=== PATIENT | male | born 1945 | race Caucasian/White ===

== ENCOUNTER 2020-03-17 06:55 | Day surgery (SDC) | payer MEDICARE ==
[2020-03-16 13:09] VITALS: BMI 33.3
[~2020-03-17 06:55] MED LIST: LACTATED RINGERS 1,000 ML IV SCH; LIDOCAINE 1% (10MG/ML) FOR IV START INTRADERMA PRN
[2020-03-17 07:18] VITALS: TEMP 97
[2020-03-17 07:24] LABS: Glucose,Whole Blood 167 mg/dL (75-99)
[2020-03-17] MEDS ORDERED: PROPOFOL 10 MG/ML 20 ML VIAL IV ONE (07:55)
--- NOTE | 2020-03-17 07:57 | P.GSHP ---
History of Present Illness H&P Date: 03/17/20 Chief Complaint: Epigastric pain This a 74-year-old male infant today for EGD. He's had complete epigastric pain. Past Medical History Past Medical History: CVA/TIA, Diabetes Mellitus, Hyperlipidemia, Hypertension, Prostate Disorder, Thyroid Disorder Additional Past Medical History / Comment(s): KIDNEY STONES. CVA X 2. RECENT N/V UNKNOWN ORIGIN History of Any Multi-Drug Resistant Organisms: None Reported Past Surgical History: Appendectomy, Hernia Repair, Joint Replacement, Orthopedic Surgery, Tonsillectomy Additional Past Surgical History / Comment(s): LT CAROTID SX. KIDNEY STONE SX. RT KNEE SX. RT ROTATOR CUFF. RT TKA Past Anesthesia/Blood Transfusion Reactions: Motion Sickness Smoking Status: Former smoker - Past Family History Mother Family Medical History: No Reported History Medications and Allergies Home Medications Medication Instructions Recorded Confirmed Type Celecoxib [CeleBREX] 200 mg PO DAILY 03/16/20 03/16/20 History Clopidogrel [Plavix] 75 mg PO DAILY 03/16/20 03/16/20 History Dulaglutide [Trulicity] 1.5 mg SQ DICKSON 03/16/20 03/16/20 History Ergocalciferol [Vitamin D2] 50,000 unit PO MO 03/16/20 03/16/20 History Ezetimibe [Zetia] 10 mg PO HS 03/16/20 03/16/20 History Fenofibrate Nanocrystallized 145 mg PO HS 03/16/20 03/16/20 History [Fenofibrate] Insulin Degludec [Tresiba 44 units SQ HS 03/16/20 03/16/20 History Flextouch U-200] Levothyroxine Sodium [Synthroid] 75 mcg PO DAILY 03/16/20 03/16/20 History Lisinopril [Zestril] 20 mg PO HS 03/16/20 03/16/20 History QUEtiapine FUMARATE [SEROquel] 600 mg PO HS 03/16/20 03/16/20 History metFORMIN HCL [Glucophage] 500 mg PO BID 03/16/20 03/16/20 History Allergies Allergy/AdvReac Type Severity Reaction Status Date / Time Penicillins Allergy Rash/Hives Verified 03/17/20 07:10 Surgical - Exam Vital Signs Temp Pulse Resp BP Pulse Ox 97.0 F L 79 16 156/77 94 L 03/17/20 07:16 03/17/20 07:16 03/17/20 07:16 03/17/20 07:16 03/17/20 07:16 - General well developed, well nourished, no distress - Eyes PERRL - ENT normal pinna - Neck no masses - Respiratory normal expansion - Cardiovascular Rhythm: regular - Abdomen Abdomen: soft, non tender Results - Labs Abnormal Lab Results - Last 24 Hours (Table) 03/17/20 Range/Units 07:23 POC Glucose (mg/dL) 167 H (75-99) mg/dL Assessment and Plan Assessment: Epigastric pain. We'll perform EGD tonight for possible gastritis.
--- NOTE | 2020-03-17 08:04 | P.OP ---
Date of Procedure: 03/17/20 Preoperative Diagnosis: Epigastric pain Postoperative Diagnosis: Poor gastric emptying antral gastritis Procedure(s) Performed: EGD Anesthesia: MAC Surgeon: Jaylen Maxwell Pathology: other (Antrum) Condition: stable Disposition: PACU Description of Procedure: The patient's placed on the endoscopy table in the lateral position. He received IV sedation. The gastroscope placed oropharynx and passed in the esophagus into the stomach. Scope then placed through the pylorus. The patient had retained food in the antrum and pylorus. The visualization of the duodenum was suboptimal. Scope was withdrawn there is some mild antral gastritis. A biopsies performed. The scope was unretroflexed and remainder stomach appeared normal. The GE junction was at 40 cm. The distal esophagus appeared normal. There is no significant hiatal hernia. The proximal esophagus appeared normal. Scope was withdrawn for patient.
[2020-03-17 08:35] VITALS: RESP 18
[2020-03-17 09:37] VITALS: BP 149/82; PULSE 78
== END 2020-03-17 09:01 | disposition home or self-care (01) ==
LOC: ORWHC2ENDO 06:55
PROVIDERS: ATTEND Surgery
DX: K29.50 Unspecified chronic gastritis without bleeding (principal); E11.9 Type 2 diabetes mellitus without complications; E78.5 Hyperlipidemia, unspecified; I10 Essential (primary) hypertension; Z86.73 Personal history of transient ischemic attack (TIA), and cerebral infarction without residual deficits; Z87.442 Personal history of urinary calculi; Z96.651 Presence of right artificial knee joint; Z98.890 Other specified postprocedural states; Z87.891 Personal history of nicotine dependence; Z79.84 Long term (current) use of oral hypoglycemic drugs; Z79.02 Long term (current) use of antithrombotics/antiplatelets; Z79.890 Hormone replacement therapy; Z79.899 Other long term (current) drug therapy; Z88.0 Allergy status to penicillin
CPT/HCPCS: 88305; 43239; J2704

== ENCOUNTER → 2020-03-18 | Outpatient (CLI) | payer MEDICARE ==
--- NOTE | 2020-03-18 11:31 | NM ---
EXAMINATION TYPE: NM hepatobiliary w CCK DATE OF EXAM: 03/18/2020 COMPARISON: NONE HISTORY: Abdominal pain TECHNIQUE: After the intravenous administration of 5.17 mCi Tc 99m Mebrofenin hepatobiliary scintigra phy is performed. Immediate images post injection. FINDINGS: There is satisfactory initial accumulation of tracer by the liver. The gallbladder is visualized wit hin 15 minutes. The small bowel activity is noted within 15 minutes. At one hour CCK was administer ed, patient was injected with 2.4 mcg of Kinevac, and gallbladder ejection fraction is calculated at 61 %, in the normal range. Therefore there is no scintigraphic evidence of cystic or common bile jody t obstruction to suggest acute cholecystitis or gallbladder dyskinesia. IMPRESSION: Exam is within normal limits.
== END | disposition home or self-care (01) ==
LOC: RADNMMAIN 06:54
PROVIDERS: ATTEND Surgery
DX: R10.9 Unspecified abdominal pain (principal)
CPT/HCPCS: 78227; A9537; J2805

== ENCOUNTER 2024-01-30 06:49 | Day surgery (SDC) | payer MEDICARE ==
[2024-01-29 09:51] VITALS: BMI 32.1
[2024-01-30] MEDS: LACTATED RINGERS 1,000 ML IV SCH (07:24)
[2024-01-30 07:35] LABS: Glucose,Whole Blood 172 mg/dL (70-110)
[2024-01-30] MEDS ORDERED: LIDOCAINE 1% INJ 10MG/ML (20 ML MDV) ONE (07:35)
[2024-01-30] MEDS ORDERED: PROPOFOL 10 MG/ML 20 ML VIAL IV ONE (07:35)
[2024-01-30] MEDS ORDERED: GLYCOPYRROLATE 0.2 MG/ML 2 ML VIAL ONE (07:35)
--- NOTE | 2024-01-30 07:43 | P.GSHP ---
History of Present Illness H&P Date: 01/30/24 Chief Complaint: anemia, GI bleed this is a 78-year-old male who's had issues anemia and possible GI bleed. Patient presents today for EGD and colonoscopy. Past Medical History Past Medical History: CVA/TIA, Diabetes Mellitus, Hyperlipidemia, Hypertension, Prostate Disorder, Thyroid Disorder Additional Past Medical History / Comment(s): KIDNEY STONES. CVA X 2 History of Any Multi-Drug Resistant Organisms: None Reported Past Surgical History: Appendectomy, Hernia Repair, Joint Replacement, Orthopedic Surgery, Tonsillectomy Additional Past Surgical History / Comment(s): LT CAROTID SX. KIDNEY STONE SX. RT KNEE SX. RT ROTATOR CUFF. RT TKA Past Anesthesia/Blood Transfusion Reactions: Motion Sickness Smoking Status: Former smoker - Past Family History Mother Family Medical History: No Reported History Medications and Allergies Home Medications Medication Instructions Recorded Confirmed Type Clopidogrel [Plavix] 75 mg PO DAILY 03/16/20 01/30/24 History Ergocalciferol [Vitamin D2] 50,000 unit PO MO 03/16/20 01/30/24 History metFORMIN HCL [Glucophage] 500 mg PO BID 03/16/20 01/30/24 History Clindamycin [Cleocin] 150 mg PO Q6H PRN 01/29/24 01/30/24 History Finasteride [Proscar] 5 mg PO DAILY 01/29/24 01/30/24 History QUEtiapine [SEROquel] 400 mg PO BID 01/29/24 01/30/24 History Semaglutide [Rybelsus] 3 mg PO DAILY 01/29/24 01/30/24 History Allergies Allergy/AdvReac Type Severity Reaction Status Date / Time Penicillins Allergy Rash/Hives Verified 01/30/24 07:13 Surgical - Exam Vital Signs Temp Pulse Resp BP Pulse Ox 97.3 F L 53 L 18 148/65 93 L 01/30/24 07:24 01/30/24 07:24 01/30/24 07:24 01/30/24 07:24 01/30/24 07:24 - General well developed, well nourished, no distress - Eyes PERRL - ENT normal pinna - Neck no masses - Respiratory normal expansion - Cardiovascular Rhythm: regular - Abdomen Abdomen: soft, non tender Results - Labs Abnormal Lab Results - Last 24 Hours (Table) 01/30/24 Range/Units 07:28 POC Glucose (mg/dL) 172 H (70-110) mg/dL Assessment and Plan Assessment: anemia, GI bleed. We'll perform colonoscopy EGD.
[2024-01-30 07:50] VITALS: RESP 18; TEMP 97.3
--- NOTE | 2024-01-30 08:01 | P.OP ---
Date of Procedure: 01/30/24 Preoperative Diagnosis: anemia GI bleed Postoperative Diagnosis: antral gastritis Diverticulosis Procedure(s) Performed: EGD Colonoscopy Anesthesia: MAC Surgeon: Jaylen Maxwell Pathology: other (antrum) Condition: stable Disposition: PACU Description of Procedure: the patient's placed on the endoscopy table in the lateral position. He received IV sedation. The gastroscope placed oropharynx passed in the esophagus and stomach. Scope was placed through the pylorus. The first and second portion of the duodenum appeared normal. Scope was then brought back the antrum this appeared mildly inflamed. A biopsy was performed. The scope was unretroflexed and remainder of the stomach appeared normal. There was a small hiatal hernia. The GE junction was at 39 cm. The distal esophagus appeared normal. Proximal esophagus appeared normal. Scope was withdrawn from the patient. Next, digital rectal exam was performed. This revealed no abnormalities. The flexible colonoscope was then placed patient anus passed throughout the entire colon. The cecum was visualized. There was a large amount liquid stool which limited the view of the cecal mucosa. The distal right colon appeared normal. The transverse colon appeared normal. In the descending sigmoid colon there was mild diverticular changes. The scope was then brought back the rectum and this appeared normal. Scope withdrawn for patient.
[2024-01-30 08:32] LABS: Glucose,Whole Blood 186 mg/dL (70-110)
[2024-01-30 08:37] VITALS: BP 154/92; PULSE 75
== END 2024-01-30 08:54 | disposition home or self-care (01) ==
LOC: ORWHC2ENDO 06:49
PROVIDERS: ATTEND Surgery
DX: K29.50 Unspecified chronic gastritis without bleeding (principal); D64.9 Anemia, unspecified; K57.30 Diverticulosis of large intestine without perforation or abscess without bleeding; K44.9 Diaphragmatic hernia without obstruction or gangrene; E11.9 Type 2 diabetes mellitus without complications; I73.9 Peripheral vascular disease, unspecified; I10 Essential (primary) hypertension; E78.5 Hyperlipidemia, unspecified; E07.9 Disorder of thyroid, unspecified; Z90.89 Acquired absence of other organs; Z90.49 Acquired absence of other specified parts of digestive tract; Z87.891 Personal history of nicotine dependence; Z79.02 Long term (current) use of antithrombotics/antiplatelets; Z79.84 Long term (current) use of oral hypoglycemic drugs; Z79.899 Other long term (current) drug therapy; Z98.890 Other specified postprocedural states; Z88.0 Allergy status to penicillin; Z86.73 Personal history of transient ischemic attack (TIA), and cerebral infarction without residual deficits; Z79.01 Long term (current) use of anticoagulants; Z96.651 Presence of right artificial knee joint
CPT/HCPCS: 88305; 45378; 43239; J2001; J2704

== ENCOUNTER → 2024-02-12 | Outpatient (CLI) | payer MEDICARE ==
[2024-02-12 19:11] LABS: Basophils # (A) 0.06 X 10*3/uL (0.00-0.10); Eosinophils # (A) 0.18 X 10*3/uL (0.04-0.35); HCT 37.8 % (39.6-50.0); HGB 12.6 g/dL (13.0-17.0); Lymphocytes # (A) 1.71 X 10*3/uL (0.90-5.00); Lymphocytes % (A) 28.4 %; MCH 29.3 pg (27.0-32.0); MCHC 33.3 g/dL (32.0-37.0); MCV 87.9 FL (80.0-97.0); Monocytes # (A) 0.69 X 10*3/uL (0.20-1.00); Monocytes % (A) 11.4 %; NRBC Per 100 WBC 0 X 10*3/uL (0.00-0.01); Neutrophils # (A) 3.37 X 10*3/uL (1.80-7.70); Neutrophils % (A) 55.9 %; Platelet Count 226 X 10*3/uL (140-440); RDW 14.3 % (11.5-14.5); WBC 6.03 X 10*3/uL (4.50-10.00)
== END | disposition home or self-care (01) ==
LOC: LABWHC1 14:14
PROVIDERS: ATTEND Surgery
DX: Z01.818 Encounter for other preprocedural examination (principal); I49.3 Ventricular premature depolarization; K43.2 Incisional hernia without obstruction or gangrene; K42.9 Umbilical hernia without obstruction or gangrene
CPT/HCPCS: 36415; 85025; 86850; 86900; 86901; 93005

== ENCOUNTER 2024-02-19 05:43 | Observation (INO) | payer MEDICARE ==
[~2024-02-19 05:43] MED LIST changes: -LACTATED RINGERS 1,000 ML IV SCH
[2024-02-19 06:59] LABS: Glucose,Whole Blood 194 mg/dL (70-110)
[2024-02-19] MEDS: LACTATED RINGERS 1,000 ML IV SCH ×2 (07:00→15:11)
[2024-02-19] MEDS: ACETAMINOPHEN TAB 500 MG TAB PO PRN (07:00)
[2024-02-19] MEDS: MIDAZOLAM 2 MG/2 ML VIAL IVP ONE (07:11)
[2024-02-19] MEDS: DEXAMETHASONE SOD PHOSPHATE 4 MG/ML 1 ML VIAL IV ONE (07:25)
[2024-02-19] MEDS: ONDANSETRON 4 MG/2 ML VIAL IVP ONE (07:25)
[2024-02-19] MEDS: HEPARIN SODIUM,PORCINE 5,000 UNIT/ML 1 ML VIAL SQ PRN (07:30)
[2024-02-19] MEDS ORDERED: DEXAMETHASONE SOD PHOSPHATE 4 MG/ML 1 ML VIAL ONE (07:35)
[2024-02-19] MEDS ORDERED: ROCURONIUM 10 MG/ML (5 ML VIAL) IV ONE (07:35)
[2024-02-19] MEDS ORDERED: KETOROLAC 30 MG/ML 1 ML VIAL ONE (07:35)
[2024-02-19] MEDS ORDERED: KETAMINE HCL IN 0.9 % NACL 50 MG/5 ML SYRINGE ONE (07:35)
[2024-02-19] MEDS ORDERED: LIDOCAINE 1% INJ 10MG/ML (20 ML MDV) ONE (07:35)
[2024-02-19] MEDS ORDERED: GLYCOPYRROLATE 0.2 MG/ML 2 ML VIAL ONE (07:35)
[2024-02-19] MEDS ORDERED: NEOSTIGMINE 1 MG/ML 10 ML VIAL ONE (07:35)
[2024-02-19] MEDS ORDERED: PROPOFOL 10 MG/ML 20 ML VIAL IV ONE (07:35)
[2024-02-19] MEDS ORDERED: HYDROmorphone (PF) 1 MG/ML ONE (07:35)
[2024-02-19] MEDS ORDERED: ROPIVACAINE 5 MG/ML 30 ML VIAL ONE (07:35)
[2024-02-19] MEDS ORDERED: SUCCINYLCHOLINE CHLORIDE 200 MG/10 ML VIAL IV ONE (07:35)
[2024-02-19] MEDS ORDERED: MIDAZOLAM 2 MG/2 ML VIAL ONE (07:35)
[2024-02-19] MEDS ORDERED: fentaNYL (PF) 50 MCG/ML 2 ML AMP ONE (07:35)
--- NOTE | 2024-02-19 07:35 | P.ANPRN ---
Procedure Note - Anesthesia - Nerve Block Performed Bilateral Transversus Abdominis Single Time Out Performed: Yes Date of Procedure: 02/19/24 Procedure Start Time: :10 Procedure Stop Time: :18 Location of Patient: PreOp Indication: Acute Post-Operative Pain, Analgesia, Requested by Surgeon Sedation Type: Sedate with meaningful contact maintained Preparation: Sterile Prep Position: Supine Needle Types: Pajunk Needle Gauge: 21 Ultrasound used to visualize needle placement: Yes Ultrasound used to observe medication spread: Yes Injectate: 0.5% Ropivacaine (see comment for volume) (Ropiv 15 ml +decadron 4mg--- Each side) Blood Aspirated: No Pain Paresthesia on Injection Noted: No Resistance on Injection: Normal Image Stored and Saved: Yes Events: Uneventful and Well Tolerated
[2024-02-19] MEDS: LIDOCAINE 1%-EPI 1:100,000 20 ML VIAL SQ ONE (08:04)
--- NOTE | 2024-02-19 09:05 | P.OP ---
Date of Procedure: 02/19/24 Preoperative Diagnosis: incisional hernia Umbilical hernia Postoperative Diagnosis: incisional hernia Umbilical hernia Procedure(s) Performed: llaparoscopic robotic-assisted repair of ventral hernia Laparoscopic robotic-assisted repair of umbilical hernia Partial omentectomy Ttransversus abdominis plane block Anesthesia: LUCAS Surgeon: Jaylen Maxwell Estimated Blood Loss (ml): 5 Pathology: other (omentum) Condition: stable Disposition: PACU Description of Procedure: The patient was placed on the operating table in the supine position. He received general anesthesia. His abdomen was prepped and draped usual fashion. Using a 5 mm optical trocar under direct visualization the peritoneal cavity was entered in the left upper quadrant. The abdomen was then insufflated. The laparoscope was placed back into the perineal cavity. Next a 8 mm robotic trocar was placed in the left lower quadrant and a 12 mm robotic trocar was placed in the left lateral position. The original 5 mm trocar was exchanged for a 8 mm robotic trocar. A four-quadrant transversus abdominis plane block performed using 1% local Xylocaine. The patient's placed in the left side up position. And the patient was undocked the robot. The umbilical hernia was visualized. Using hook cautery the peritoneum over the umbilical hernia was excised. the omentum was dissected free and sent to pathology. The fascial opening was repaired using 0V LOC suture. Next the incisional hernia was dissected. The incisional hernia was in the midline. UsingOV lock suture. The hernia was repaired. Next a piece of 11 cm round ventral light ST mesh was placed into the. Cavity and secured with 2 OV lock suture. The patient was undocked the robot. The needles were retrieved. The fascia of the 12 mm trocar site was closed with 0 Ethibond suture. Skin was closed interrupted 3-0 Monocryl suture. Dermabond dressings was applied. Patient top procedure well and was sent to recovery room stable condition.
[2024-02-19] MEDS: HYDROmorphone 0.5 MG/0.5 ML SYRINGE IVP PRN (09:16)
[2024-02-19] MEDS: droPERidol 5 MG/2 ML VIAL IVP ONE (09:31)
[2024-02-19] MEDS: fentaNYL (PF) 50 MCG/ML 2 ML AMP IVP ONE (10:34)
[2024-02-19] MEDS: LACTATED RINGERS 1,000 ML IV ONE (11:30)
[2024-02-19] MEDS ORDERED: NALOXONE 0.4 MG/ML 1 ML VIAL IV PRN (11:54)
[2024-02-19] MEDS: HYDROcodone/APAP 5-325MG 1 EACH TAB PO PRN (13:15)
[2024-02-19] MEDS: INSULIN ASPART (NovoLOG) 100 UNIT/ML VIAL SQ ONE (13:41)
[2024-02-19] MEDS: HYDROmorphone 1 MG/ML 1 ML SYRINGE IVP PRN (15:08)
[2024-02-19 16:47] LABS: Glucose,Whole Blood 242 mg/dL (70-110)
[2024-02-19] MEDS ORDERED: DEXTROSE 50% SYRINGE 50 ML IVP PRN ×2 (17:18)
[2024-02-19] MEDS: KETOROLAC 15 MG/ML 1 ML VIAL IVP SCH (18:02)
[2024-02-19] MEDS: INSULIN ASPART (NovoLOG) 100 UNIT/ML VIAL SQ SCH (18:03)
[2024-02-19 20:58] LABS: Glucose,Whole Blood 210 mg/dL (70-110)
[2024-02-19] MEDS: QUEtiapine 400 MG TAB PO SCH (21:52)
[2024-02-19] MEDS: ONDANSETRON 4 MG/2 ML VIAL IVP PRN (23:32)
[2024-02-20 05:52] LABS: Glucose,Whole Blood 189 mg/dL (70-110)
[2024-02-20] MEDS: CLOPIDOGREL 75 MG TAB PO SCH (08:33)
[2024-02-20] MEDS: ENOXAPARIN 40 MG/0.4 ML SYRINGE SQ SCH (08:33)
[2024-02-20] MEDS: FINASTERIDE 5 MG TAB PO SCH (08:34)
[2024-02-20] MEDS: lisinopriL 10 MG TAB PO SCH (08:34)
[2024-02-20 11:56] LABS: Glucose,Whole Blood 199 mg/dL (70-110)
--- NOTE | 2024-02-20 12:53 | P.DS ---
Providers Date of admission: 02/19/24 05:44 Expected date of discharge: 02/20/24 Attending physician: Jaylen Maxwell Consults: 02/19/24 11:54 Consult Physician Routine Consulting Provider: Emanuel Talavera Consult Reason/Comments: medical management Do you want consulting provider notified?: Yes Primary care physician: [facility] Course: this is a 78-year-old male who underwent laparoscopic repair of ventral hernia. Patient was For postoperative pain management. Patient did well during his authorization. He was discharged home on postoperative day 1. Procedures: laparoscopic robotic Ventral hernia Patient Condition at Discharge: Good Plan - Discharge Summary Discharge Rx Participant: No New Discharge Prescriptions: New Docusate [Colace] 100 mg PO BID #20 capsule oxyCODONE HCL [OxyIR] 5 mg PO Q6H PRN 3 Days #10 tab PRN Reason: Pain Acetaminophen Tab [Tylenol] 650 mg PO Q6H #30 tab Ibuprofen [Motrin] 600 mg PO Q6HR PRN #40 tab PRN Reason: Pain No Action metFORMIN HCL [Glucophage] 500 mg PO BID Ergocalciferol [Vitamin D2] 50,000 unit PO MO Clopidogrel [Plavix] 75 mg PO DAILY QUEtiapine [SEROquel] 400 mg PO BID lisinopriL 30 mg PO DAILY Insulin Degludec [Tresiba Flextouch U-200 Pen] 1 dose INJ DAILY Celecoxib 200 mg PO DAILY Finasteride [Proscar] 5 mg PO DAILY Semaglutide [Rybelsus] 3 mg PO DAILY Discharge Medication List Clopidogrel [Plavix] 75 mg PO DAILY 03/16/20 [History] Ergocalciferol [Vitamin D2] 50,000 unit PO MO 03/16/20 [History] metFORMIN HCL [Glucophage] 500 mg PO BID 03/16/20 [History] Finasteride [Proscar] 5 mg PO DAILY 01/29/24 [History] QUEtiapine [SEROquel] 400 mg PO BID 01/29/24 [History] Semaglutide [Rybelsus] 3 mg PO DAILY 01/29/24 [History] Celecoxib 200 mg PO DAILY 02/17/24 [History] Insulin Degludec [Tresiba Flextouch U-200 Pen] 1 dose INJ DAILY 02/17/24 [History] lisinopriL 30 mg PO DAILY 02/17/24 [History] Acetaminophen Tab [Tylenol] 650 mg PO Q6H #30 tab 02/19/24 [Rx] Docusate [Colace] 100 mg PO BID #20 capsule 02/19/24 [Rx] Ibuprofen [Motrin] 600 mg PO Q6HR PRN #40 tab 02/19/24 [Rx] oxyCODONE HCL [OxyIR] 5 mg PO Q6H PRN 3 Days #10 tab 02/19/24 [Rx] Follow up Appointment(s)/Referral(s): Jaylen Maxwell MD [STAFF PHYSICIAN] - 1 Week Discharge Disposition: HOME SELF-CARE
[2024-02-20 15:06] VITALS: BP 111/56; PULSE 70; RESP 18; TEMP 98.4
[2024-02-21 12:08] LABS: Glucose,Whole Blood 259 mg/dL (70-110)
== END 2024-02-20 18:04 | disposition home or self-care (01) ==
LOC: OR 05:43 → INTOOBSV 05:44 → UNDOADMOB 05:44 → 6NMEDSUR 05:44 → OR 08:51 → 6NMEDSUR 10:25 → OR 02-20 01:11 → UNDODISIN 02-20 18:04
PROVIDERS: ADMIT Surgery; ATTEND Surgery
DX: K43.2 Incisional hernia without obstruction or gangrene (principal); K42.9 Umbilical hernia without obstruction or gangrene; G89.18 Other acute postprocedural pain
CPT/HCPCS: 96376 ×2; 96361; 96372; 96374; 96375; 64488; 88302; 83036; 49591; G0378 ×2; C1781; S0138; J2250; J0330; J1644; J1100; J2710; J0690; J2405; J2001; J1650; J3010; J1885 ×3; J1170 ×3; J2795; J2704; J1790